=== PATIENT | female | born 1955 | race Caucasian/White ===

== ENCOUNTER 2019-07-15 12:53 | Emergency (ER) | payer OTHER ==
[~2019-07-15] VITALS: Ht 165.1 cm; Wt 72.6 kg
[2019-07-15 13:34] VITALS: Ht 165.1 cm; Wt 72.6 kg
[2019-07-15 16:23] VITALS: BP 118/47
== END 2019-07-15 16:23 | disposition home or self-care (01) ==
LOC: ED 12:53
DX: M71.21 Synovial cyst of popliteal space [Baker], right knee (principal); M19.90 Unspecified osteoarthritis, unspecified site; F17.210 Nicotine dependence, cigarettes, uncomplicated
CPT/HCPCS: Q0092